=== PATIENT | female | born 1965 | race Caucasian/White ===

== ENCOUNTER 2018-05-20 02:51 | Emergency (ER) | payer OTHER ==
[~2018-05-20] VITALS: Ht 170.2 cm; Wt 56.7 kg
[2018-05-20 02:57] VITALS: Ht 170.2 cm; Wt 56.7 kg
[2018-05-20 05:44] VITALS: BP 112/70
== END 2018-05-20 05:44 | disposition home or self-care (01) ==
LOC: ED 02:51
DX: S99.922A Unspecified injury of left foot, initial encounter (principal); X50.1XXA Overexertion from prolonged static or awkward postures, initial encounter; Y93.89 Activity, other specified; Y92.89 Other specified places as the place of occurrence of the external cause; Y99.8 Other external cause status

== ENCOUNTER 2019-09-05 03:15 | Emergency (ER) | payer OTHER ==
[~2019-09-05] VITALS: Ht 167.6 cm; Wt 56.2 kg
[2019-09-05 03:24] VITALS: Ht 167.6 cm; Wt 56.2 kg
[2019-09-05 04:21] VITALS: BP 134/60
== END 2019-09-05 04:21 | disposition home or self-care (01) ==
LOC: ED 03:15
DX: S40.012A Contusion of left shoulder, initial encounter (principal); R07.89 Other chest pain; R06.02 Shortness of breath; W01.0XXA Fall on same level from slipping, tripping and stumbling without subsequent striking against object, initial encounter; Y93.89 Activity, other specified; Y92.89 Other specified places as the place of occurrence of the external cause; Y99.8 Other external cause status
CPT/HCPCS: Q0092

== ENCOUNTER 2019-09-08 15:42 | Emergency (ER) | payer OTHER ==
[~2019-09-08] VITALS: Ht 167.6 cm; Wt 55.3 kg
[2019-09-08 15:47] VITALS: Ht 167.6 cm; Wt 55.3 kg
[2019-09-08 16:49] VITALS: BP 136/82
== END 2019-09-08 16:49 | disposition home or self-care (01) ==
LOC: ED 15:42
DX: S22.42XA Multiple fractures of ribs, left side, initial encounter for closed fracture (principal); W18.30XA Fall on same level, unspecified, initial encounter; Y93.89 Activity, other specified; Y92.89 Other specified places as the place of occurrence of the external cause; Y99.8 Other external cause status
CPT/HCPCS: Q0092